=== PATIENT | female | born 1970 | race American Indian/Alaskan Native ===

== ENCOUNTER 2017-05-20 10:26 | Emergency (ER) | payer SELFPAY ==
[~2017-05-20] VITALS: Ht 177.8 cm; Wt 68.2 kg
[2017-05-20 10:29] VITALS: TEMP 98.8
[2017-05-20] MEDS ORDERED: NORVASC 10MG10 MG PO (11:36)
[2017-05-20] MEDS ORDERED: DOXYCYCLINE 10100 MG PO (11:36)
[2017-05-20 11:46] VITALS: BP 162/93; PULSE 64
== END 2017-05-20 11:52 | disposition home or self-care (01) ==
LOC: COL.ER 10:26
DX: L03.115 Cellulitis of right lower limb (principal); S80.861A Insect bite (nonvenomous), right lower leg, initial encounter; I10 Essential (primary) hypertension; F17.210 Nicotine dependence, cigarettes, uncomplicated